=== PATIENT | male | born 1985 | race American Indian/Alaskan Native ===

== ENCOUNTER 2017-03-03 00:46 | Emergency (ER) | payer SELFPAY ==
[2017-03-03 00:57] VITALS: BP 140/89
--- NOTE | 2017-03-03 02:10 | XRay Report ---
FINAL REPORT PROCEDURE: XR HAND 3+V RT TECHNIQUE: RIGHT hand radiographs, AP, lateral, and oblique views. CPT 52921-BU HISTORY: finger injury COMPARISON: No prior studies are available for comparison. FINDINGS: Fracture (s) and/or Dislocation(s): None . Alignment: Normal . Joint space(s): Normal . Soft tissues: Normal . Bone mineralization: Normal . Foreign bodies: None . IMPRESSION: Normal Examination .
--- NOTE | 2017-03-03 04:10 | Emergency Department Report ---
Upper Extremity - HPI Chief Complaint: Extremity Injury, Upper Stated Complaint: POSS FRACTURE FINGER Time Seen by Provider: 03/03/17 03:30 Upper Extremity: Right Ring Finger (patient reports pain to right ring finger after lifting heavy object) Occurred When: Today Mechanism: Other (skin heavy object) Severity: mild (toward a 10) Symptoms: Yes Pain with Movement (right ring finger), Yes Limited Range of Movement (ring finger), No Deformity, No Numbness, No Weakness, No Swelling, No Bruising/Ecchymosis, No Laceration or Abrasion Other History: Patient care reported pain toward a 10 to right ring finger after lifting a heavy object. Denies any numbness or tingling. Denies any blunt trauma to finger. He said he wants to get it checked out to see if it's broken. No [id number] medication taken prior to coming to the emergency room ED Review of Systems ROS: Stated complaint: POSS FRACTURE FINGER Other details as noted in HPI Comment: All other systems reviewed and negative Constitutional: denies: chills, fever Respiratory: no symptoms reported Cardiovascular: denies: chest pain, palpitations, edema, syncope Gastrointestinal: denies: abdominal pain, nausea, vomiting Musculoskeletal: arthralgia. denies: back pain, joint swelling, myalgia Skin: denies: rash Neurological: denies: headache, weakness, numbness, paresthesias, confusion, abnormal gait, vertigo ED Past Medical Hx - Past Medical History Previous Medical History?: No - Surgical History Past Surgical History?: No - Family History Family history: no significant - Social History Smoking Status: Current Every Day Smoker Substance Use Type: None - Medications Home Medications: Home Medications Medication Instructions Recorded Confirmed Last Taken Type Ibuprofen [Motrin] 600 mg PO Q8H PRN #15 tablet 03/03/17 Unknown Rx Upper Extremity Exam - Exam General: Vital signs noted. No distress. Alert and acting appropriately. This is a 31-year-old male well-nourished well-developed in no acute distress. Head and Torso: No HEENT Abnormality (normal exam), No Neck Tenderness (supple, nontender to palpate an full range of motion), No Chest/Lungs Abnormality ( clear to auscultate bilaterally, no rhonchi wheezes or rales.), No Abdominal Tenderness (soft, nontender to palpation and normal bowel sounds), No Back Tenderness (normal inspection with full range of motion) Shoulder Exam: Yes Normal Range of Motion in Shoulder, No Shoulder Tenderness, No Clavicle Tenderness, No Shoulder Deformity, No AC Joint Tenderness Arm Exam: No Arm/Humerus Tenderness, No Arm Deformity Elbow: Yes Normal Range of Motion in Elbow, No Elbow Tenderness, No Elbow Deformity Forearm: No Forearm Tenderness, No Forearm Deformity, No Pain with Pronation, No Pain with Supination Wrist: Yes Normal ROM in Wrist, No Wrist Tenderness, No Wrist Deformity, No Snuffbox Tenderness, No Pain with Axial Thumb Compression Hand: Yes Normal ROM in Digit(s), No Hand Tenderness, No Hand Deformity, No Digit Tenderness (right ring finger without any bony tenderness or deformity.), No Digit(s) Deformity, No Tendon Dysfunction CMS Exam: Yes Normal Distal Pulses, Yes Normal Capillary Refill, Yes Normal Distal Sensation, No Broken Skin ED Course Vital Signs 03/03/17 00:53 Temperature 98.4 F Pulse Rate 95 H Blood Pressure 140/89 O2 Sat by Pulse 100 Oximetry Vital Signs 03/03/17 03/03/17 00:53 04:10 Temperature 98.4 F Pulse Rate 95 H Respiratory 18 Rate Blood Pressure 140/89 O2 Sat by Pulse 100 Oximetry - Reevaluation(s) Reevaluation #1: 03/03/17 04:37 Patient given Motrin 600 mg emergency room for right ring finger pain. ED Medical Decision Making - Radiology Data Radiology results: report reviewed X-ray reports of right hand reveals normal alignment, joint spaces are normal, soft tissue normal, bone mineralization normal and foreign bodies present. Normal examination. - Medical Decision Making ED course: status post lifting heavy objects and thought that he had broken right ring finger. Patient given Motrin 600 mg by mouth in emergency room for right ring finger pain. Physical findings reveal no abnormalities to the right hand or fingers. X-ray findings shows normal exam and this is explained to patient in detail. He voiced understanding and and discharged home with prescriptions for Motrin. Critical care attestation.: If time is entered above; I have spent that time in minutes in the direct care of this critically ill patient, excluding procedure time. ED Disposition Clinical Impression: Finger pain, right Injury of right ring finger Qualifiers: Encounter type: initial encounter Qualified Code(s): S69.91XA - Unspecified injury of right wrist, hand and finger(s), initial encounter Disposition: DC-01 TO HOME OR SELFCARE Is pt being admited?: No Does the pt Need Aspirin: No Condition: Stable Instructions: Arthralgia (ED) Additional Instructions: Rest, ice, compress and elevate affected area 72 hours Taken Motrin as prescribed for pain. X-ray shows normal findings. Prescriptions: Ibuprofen [Motrin] 600 mg PO Q8H PRN #15 tablet PRN Reason: Pain Referrals: PRIMARY CARE, [Primary Care Provider] - 3-5 Days [facility] [Outside] - 3-5 Days Forms: Work/School Release Form(ED)
[2017-03-03] MEDS ORDERED: MOTRIN PO ONE (04:34)
== END 2017-03-03 04:50 | disposition home or self-care (01) ==
LOC: ED 00:46
DX: S69.91XA Unspecified injury of right wrist, hand and finger(s), initial encounter (principal); F17.200 Nicotine dependence, unspecified, uncomplicated; W20.8XXA Other cause of strike by thrown, projected or falling object, initial encounter; Y93.9 Activity, unspecified; Y92.9 Unspecified place or not applicable; Y99.9 Unspecified external cause status
CPT/HCPCS: 99283

== ENCOUNTER 2019-02-01 08:21 | Emergency (ER) | payer SELFPAY ==
[2019-02-01 08:53] VITALS: BP 117/75
[2019-02-01] MEDS ORDERED: DECADRON IM ONE (09:49)
[2019-02-01] MEDS ORDERED: CLARITIN PO ONE (09:52)
--- NOTE | 2019-02-01 09:54 | Emergency Department Report ---
ED Rash HPI - HPI Chief Complaint: Skin Rash Stated Complaint: RASH ON LEGS/ARMS Time Seen by Provider: 02/01/19 09:38 Location: Chest, Upper Extremities, Lower Extremities Suspected Cause: Unknown Rash Symptoms: Yes Itching, No Facial Swelling, No Tongue/Oral Swelling, No Breathing Difficulties, No Choking Sensation, No Wheezing/Dyspnea, No Peeling, No Blistering, No Fever, No Lightheaded, No Malaise, No Myalgias Severity: mild Other History: 33 yo male comes in with rash off and on for weeks; since he started new job. no one in home with. no pattern of rash. itching. no open areas. has taken nothing at home to help. no known allergan. vss. no wheezing ED Review of Systems ROS: Stated complaint: RASH ON LEGS/ARMS Other details as noted in HPI Comment: All other systems reviewed and negative ED Past Medical Hx - Past Medical History Previous Medical History?: No - Surgical History Past Surgical History?: No - Social History Smoking Status: Never Smoker Substance Use Type: Marijuana - Medications Home Medications: Home Medications Medication Instructions Recorded Confirmed Last Taken Type Cetirizine HCl [ZyrTEC] 10 mg PO DAILY #30 capsule 02/01/19 Unknown Rx diphenhydrAMINE [Benadryl CAP] 25 mg PO Q8HR PRN #20 capsule 02/01/19 Unknown Rx predniSONE [Deltasone] 20 mg PO DAILY #5 tablet 02/01/19 Unknown Rx Rash Exam - Exam General: Vital signs noted. No distress. Alert and acting appropriately. WDWN patient in NAD VS per RN flow sheet Alert and oriented to person, place and time. S1-S2. No S3 or S4. No systolic or diastolic murmur. No JVD. No pitting edward a. Lungs clear to auscultation bilaterally anteriorly and posteriorly. Abdomen soft nontender bowel sounds -4. Moves all extremities well. gen rash- macular on arms, neck and legs; no pattern, no open areas; no one in home with; no oral or conjunctival lesions Mood and affect appropriate. Heart: Yes Regular (90 on exam) Skin: Yes Maculopapular Rash, No Urticarial Rash, No Morbilliform rash, No Bulla(e), No Excoriations, No Weeping, No Tenderness, No Erythema, No Edema, No Encrustations Other: Positive: Abdomen Normal, Neurologic Normal, Musculoskeletal Normal ED Course Vital Signs 02/01/19 08:51 Temperature 98.1 F Pulse Rate 104 H Respiratory 18 Rate Blood Pressure 117/75 [Left] O2 Sat by Pulse 99 Oximetry ED Medical Decision Making - Medical Decision Making simple rash ? etiology for weeks decadron IM dc home with dc plan of care including derm follow up Vital Signs 02/01/19 08:51 Temperature 98.1 F Pulse Rate 104 H Respiratory 18 Rate Blood Pressure 117/75 [Left] O2 Sat by Pulse 99 Oximetry Critical care attestation.: If time is entered above; I have spent that time in minutes in the direct care of this critically ill patient, excluding procedure time. ED Disposition Clinical Impression: Rash Disposition: DC-01 TO HOME OR SELFCARE Is pt being admited?: No Does the pt Need Aspirin: No Condition: Stable Instructions: Acute Rash (ED) Additional Instructions: DIET TOLERATED MEDS ORDERED TODAY IN ER FOLLOW INSTRUCTIONS ON THE BOTTLE FOLLOW UP with DERM MD to get definitive diagnosis ACTIVITY TOLERATED MOTRIN OR TYLENOL FOR PAIN OR FEVER RETURN TO THE ER FOR WORSENING SYMPTOMS NOT RELIEVED BY YOUR MEDICATIONS. Referrals: WILL GARDINER MD [Referring] - 3-5 Days Forms: Work/School Release Form(ED) Time of Disposition: 09:51
== END 2019-02-01 10:15 | disposition home or self-care (01) ==
LOC: ED 08:21
DX: R21 Rash and other nonspecific skin eruption (principal); F12.10 Cannabis abuse, uncomplicated; Z91.013 Allergy to seafood
CPT/HCPCS: 96372; 99282; J1100

== ENCOUNTER 2020-12-07 13:59 | Emergency (ER) | payer OTHER ==
[2020-12-07 14:06] VITALS: BP 128/85
[2020-12-07] MEDS ORDERED: TETANUS,DIPH,PERTUSS(ACELL) VACCINE 0.5 ML SYRINGE IM ONE (14:09)
--- NOTE | 2020-12-07 14:47 | XRay Report ---
LEFT FOREARM 2 VIEW(S) INDICATION / CLINICAL INFORMATION: left forearm abrasion with possible glass foreign COMPARISON: None available. FINDINGS: BONES / JOINT(S): No acute fracture or subluxation. No significant arthritis. SOFT TISSUES: 6 x 9 mm radiopaque foreign body within the soft tissues of volar distal forearm likely representing glass. ADDITIONAL FINDINGS: None. Signer Name: Kait Rodriguez MD Signed: 12/07/2020 2:42 PM Workstation Name: [id number]
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
--- NOTE | 2020-12-07 16:01 | XRay Report ---
LEFT FOREARM 2 VIEW(S) 12/07/20 3:42 PM INDICATION / CLINICAL INFORMATION: post foreign body removal COMPARISON: 2:19 PM FINDINGS: BONES / JOINT(S): No acute fracture or subluxation. No significant arthritis. SOFT TISSUES: Previously identified radiopaque foreign body is no longer present. ADDITIONAL FINDINGS: None. Signer Name: Kait Rodriguez MD Signed: 12/07/2020 3:57 PM Workstation Name: [id number]
== END 2020-12-07 16:15 | disposition home or self-care (01) ==
LOC: ED 13:59
DX: S50.812A Abrasion of left forearm, initial encounter (principal); S50.851A Superficial foreign body of right forearm, initial encounter; F12.10 Cannabis abuse, uncomplicated; Z79.899 Other long term (current) drug therapy; Z91.013 Allergy to seafood; W45.8XXA Other foreign body or object entering through skin, initial encounter; Y93.89 Activity, other specified; Y92.89 Other specified places as the place of occurrence of the external cause; Y99.8 Other external cause status
CPT/HCPCS: 90471; 90715; 99283